=== PATIENT | male | born 1975 | race African-American/Black ===

== ENCOUNTER 2016-09-08 22:32 | Emergency (ER) | payer SELFPAY ==
[~2016-09-08] VITALS: Ht 182.9 cm; Wt 100.0 kg
[2016-09-08 22:34] VITALS: BP 145/91
== END 2016-09-08 23:00 | disposition left against medical advice (07) ==
LOC: ER 22:34
DX: T65.91XA Toxic effect of unspecified substance, accidental (unintentional), initial encounter (principal); Z53.21 Procedure and treatment not carried out due to patient leaving prior to being seen by health care provider; Y92.89 Other specified places as the place of occurrence of the external cause